=== PATIENT | female | born 1990 | race Caucasian/White ===

== ENCOUNTER 2018-11-24 13:31 | Emergency (ER) | payer OTHER ==
[~2018-11-24] VITALS: Ht 157.5 cm; Wt 76.2 kg
[2018-11-24 13:35] VITALS: Ht 157.5 cm; Wt 76.2 kg
[2018-11-24] MEDS ORDERED: ACETAMINOPHEN 325 MG TAB PO STA (14:47)
--- NOTE | 2018-11-24 15:03 | ERD ---
ER Documentation Chief Complaint Chief Complaint LLQ PAIN SINCE LAST NIGHT - LMP 09/08/18 HPI 28-year-old female in her 11th week of presents with complaint of left quadrant abdominal pain. States that the pain started last night. States that the pain is intermittent. Currently states the pain is 5 out of 10 in intensity. She also states there is been some associated left flank pain. Has not been taking any treatments. Denies any nausea, vomiting, diarrhea, fevers, chills, vaginal discharge, dysuria, hematuria. ROS All systems reviewed and are negative except as per history of present illness. Medications Home Meds Active Scripts Acetaminophen* (Tylophen*) 500 Mg Capsule, 1 CAP PO Q6H PRN for PAIN AND OR ELEVATED TEMP, #20 CAP Prov:AIDE LOUISE 11/24/18 Allergies Allergies: Coded Allergies: No Known Allergy (Unverified , 11/24/18) PMhx/Soc Medical and Surgical Hx: pt denies Medical Hx, pt denies Surgical Hx Hx Alcohol Use: No Hx Substance Use: No Hx Tobacco Use: No Smoking Status: Never smoker FmHx Family History: No diabetes, No coronary disease, No other Physical Exam Vitals Vital Signs Date Temp Pulse Resp B/P (MAP) Pulse Ox O2 O2 Flow FiO2 Time Delivery Rate 11/24/18 98.1 101 18 140/93 98 13:35 (109) Physical Exam Const: No acute distress Head: Atraumatic Eyes: Normal Conjunctiva ENT: Normal External Ears, Nose and Mouth. Neck: Full range of motion. No meningismus. Resp: Clear to auscultation bilaterally Cardio: Regular rate and rhythm, no murmurs Abd: Tenderness to palpation without guarding in lower left quadrant. Otherwise soft, non tender, non distended. Normal bowel sounds. Skin: No petechiae or rashes Back: Mild CVA tenderness on left side. Ext: No cyanosis, or edema Neur: Awake and alert Psych: Normal Mood and Affect Result Diagram: 11/24/18 1450 11/24/18 1450 Results 24 hrs Laboratory Tests Test 11/24/18 14:41 11/24/18 14:43 11/24/18 14:50 Bedside Urine pH (LAB) 7.0 Bedside Urine Protein (LAB) Negative Bedside Urine Glucose (UA) Negative Bedside Urine Ketones (LAB) Negative Bedside Urine Blood Negative Bedside Urine Nitrite (LAB) Negative Bedside Urine Negative Leukocyte Esterase (L Urine Color YELLOW Urine Clarity CLEAR Urine pH 7.0 Urine Specific Hardaway 1.012 Urine Ketones NEGATIVE mg/dL Urine Nitrite NEGATIVE mg/dL Urine Bilirubin NEGATIVE mg/dL Urine Urobilinogen NEGATIVE mg/dL Urine Leukocyte Esterase NEGATIVE Colton/ul Urine Hemoglobin NEGATIVE mg/dL Urine Glucose NEGATIVE mg/dL Urine Total Protein NEGATIVE mg/dl POC Beta HCG, Qualitative POSITIVE White Blood Count 10.5 10^3/ul Red Blood Count 4.70 10^6/ul Hemoglobin 13.2 g/dl Hematocrit 40.0 % Mean Corpuscular Volume 85.1 fl Mean Corpuscular Hemoglobin 28.1 pg Mean Corpuscular 33.0 g/dl Hemoglobin Concent Red Cell Distribution Width 13.2 % Platelet Count 331 10^3/UL Mean Platelet Volume 10.8 fl Immature Granulocytes % 0.300 % Neutrophils % 79.1 % Lymphocytes % 14.0 % Monocytes % 6.1 % Eosinophils % 0.3 % Basophils % 0.2 % Nucleated Red Blood Cells % 0.0 /100WBC Immature Granulocytes # 0.030 10^3/ul Neutrophils # 8.3 10^3/ul Lymphocytes # 1.5 10^3/ul Monocytes # 0.6 10^3/ul Eosinophils # 0.0 10^3/ul Basophils # 0.0 10^3/ul Nucleated Red Blood Cells # 0.0 10^3/ul Sodium Level 137 mmol/L Potassium Level 3.7 mmol/L Chloride Level 102 mmol/L Carbon Dioxide Level 23 mmol/L Anion Gap 12 Blood Urea Nitrogen 6 mg/dl Creatinine 0.41 mg/dl Est Glomerular Filtrat > 60 mL/min Rate mL/min Glucose Level 110 mg/dl Calcium Level 9.7 mg/dl Total Bilirubin 0.2 mg/dl Direct Bilirubin 0.00 mg/dl Indirect Bilirubin 0.2 mg/dl Aspartate Amino 18 IU/L Transf (AST/SGOT) Alanine 17 IU/L Aminotransferase (ALT/SGPT) Alkaline Phosphatase 111 IU/L Total Protein 7.7 g/dl Albumin 4.2 g/dl Globulin 3.50 g/dl Albumin/Globulin Ratio 1.20 Lipase 144 U/L Beta HCG, Quantitative 376921.0 mIU/ml Current Medications Medications Dose Sig/Yehuda Start Time Status Last (Trade) Ordered Route PRN Stop Time Admin Dose Reason Admin 650 mg ONCE STAT 11/24/18 DC 11/24/18 Acetaminophen PO 14:47 14:52 (Tylenol 11/24/18 14:50 Tab) Procedures/MDM DIAGNOSTIC IMAGING REPORT Patient: BORIS LEBLANC : 1990 Age: 28 Sex: F MR #: [id number] DOS: 11/24/18 1447 Ordering MD: AIDE LOUISE Location: [facility] Room/Bed: PROCEDURE: US OB. CLINICAL INDICATION: Left lower quadrant pain TECHNIQUE: Transabdominal and transvaginal views of the pelvis are available for review. COMPARISON: No prior studies are available for comparison. FINDINGS: There is a single intrauterine gestation with the crown-rump length measuring 2.8 cm and the gestational sac measures 5.1 cm, corresponding to a gestational age of 10 weeks and 4 days. The heart rate is noted at 165 bpm. There is a small 1 cm hypoechoic fluid collection adjacent to the gestational sac. The ovaries are normal in size and echogenicity. Normal Doppler flow is identified in both ovaries. The right ovary measures 2.4 x 2.0 x 2.5 cm. The left ovary measures 4.4 x 2.1 x 2.5 cm. There is no free fluid. RPTAT: AA IMPRESSION: Single live intrauterine with an estimated gestational age of 10 weeks and 4 days, based on ultrasound measurements. DANY based on ultrasound measurements is 06/18/19. Small area of subchorionic hemorrhage. .Gumaro Noyola MD, MD Date Time Electronically viewed and signed by .Gumaro Noyola MD, on 11/24/2018 15:13 .S/ CC: AIDE LOUISE [id number] MDM: Ultrasound was performed and results within normal limits. There is no sign of UTI blood work was within normal limits as well. The suspicion for pyelonephritis, ectopic , ovarian torsion, diverticulitis, diverticulosis, bowel obstruction, acute abdomen, cholecystitis, cholelithiasis, or any other emergent condition. There was small area of subchorionic hemorrhage shown on the ultrasound the patient was advised to have close follow- up with her OB. Patient understood and agreed. Patient discharged with strict ER precautions. Patient advised to follow up with PMD. All questions answered at discharge. Departure Diagnosis: Primary Impression: Abdominal pain Abdominal location: left lower quadrant Qualified Codes: R10.32 - Left lower quadrant pain Condition: Stable AIDE LOUISE Nov 24, 2018 15:03
[2018-11-24] MEDS ORDERED: ACET500C5 PO (17:13)
[2018-11-24 17:25] VITALS: BP 122/67; PULSE 78; RESP 18
== END 2018-11-24 17:25 | disposition home or self-care (01) ==
LOC: FTE 13:31
DX: O26.891 Other specified pregnancy related conditions, first trimester (principal); R10.32 Left lower quadrant pain; Z3A.10 10 weeks gestation of pregnancy
CPT/HCPCS: 36415; 76801; 80053; 81003; 81025; 83690; 84702; 85025; 86900; 86901; 87086; Z7502; Z7610

== ENCOUNTER 2018-12-25 13:59 | Emergency (ER) | payer OTHER ==
[~2018-12-25] VITALS: Wt 75.4 kg
[~2018-12-25 13:59] MED LIST: ACET500C5 PO
[2018-12-25 14:03] VITALS: BP 127/80; PULSE 90; RESP 18
[2018-12-25] MEDS ORDERED: ACET500C5 PO (15:33)
--- NOTE | 2018-12-25 15:56 | ERD ---
ER Documentation Chief Complaint Chief Complaint RIGHT KNEE AND MILD ABD PAIN FROM A FALL. NO VAG BLEEDING. NO LOC HPI 28-year-old female presenting with right knee pain and abdominal pain after a fall earlier today. Patient is about 14 weeks she is concerned about the baby. She is had no vaginal bleeding and no pelvic cramping. G5, . Denies medical problems. NKDA. Surgical history denies. Social history denies ROS All systems reviewed and are negative except as per history of present illness. Medications Home Meds Active Scripts Acetaminophen* (Tylophen*) 500 Mg Capsule, 2 CAP PO Q8H PRN for PAIN AND OR ELEVATED TEMP, #20 CAP Prov:MAKI WASHBURN PA-C 12/25/18 Acetaminophen* (Tylophen*) 500 Mg Capsule, 1 CAP PO Q6H PRN for PAIN AND OR ELEVATED TEMP, #20 CAP Prov:AIDE LOUISE 11/24/18 Allergies Allergies: Coded Allergies: No Known Allergy (Unverified , 11/24/18) PMhx/Soc Hx Alcohol Use: No Hx Substance Use: No Hx Tobacco Use: No FmHx Family History: No diabetes, No coronary disease, No other Physical Exam Vitals Vital Signs Date Temp Pulse Resp B/P (MAP) Pulse Ox O2 O2 Flow FiO2 Time Delivery Rate 12/25/18 99.3 90 18 127/80 99 14:03 (96) Physical Exam GENERAL: The patient is well-appearing, well-nourished, in no acute distress CHEST: Clear to auscultation bilaterally. There are no rales, wheezes or rhonchi. HEART: Regular rate and rhythm. No murmurs, clicks, rubs or gallops. ABDOMEN:Soft, nontender and nondistended. Good bowel sounds. No rebound or guarding. No gross peritonitis. No gross organomegaly or masses. No Frausto sign or McBurney point tenderness. EXTREMITIES: Equal pulses bilaterally. There is no peripheral clubbing, cyanosis or edema. No focal swelling or erythema. Full range of motion. Grossly neurovascularly intact. NEUROLOGIC: Alert and oriented. Cranial nerves II through XII intact. Motor strength in all 4 extremities with 5 out of 5 strength. Sensation grossly intact. Normal speech and gait. SKIN: Abrasions noted to right knee. Procedures/MDM DIAGNOSTIC IMAGING REPORT Patient: BORIS LEBLACN : 1990 Age: 28 Sex: F MR #: [id number] DOS: 12/25/18 1452 Ordering MD: JACK WASHBURN PA-C Location: [facility] Room/Bed: PROCEDURE: US OB. CLINICAL INDICATION: Pelvic pain, status post fall TECHNIQUE: Transabdominal views of the pelvis are available for review. COMPARISON: 11/24/2018 FINDINGS: There is a single intrauterine gestation with the crown-rump length measuring 8.4 cm, corresponding to a gestational age of 14 weeks and 2 days. The heart rate is noted at 144 bpm. The placenta is anterior. There is no evidence of placental abruption . MVP measures 3.8 cm. The ovaries are normal in size and echogenicity. Normal Doppler flow is identified in both ovaries. The right ovary measures 1.8 x 1.0 x 1.1 cm. The left ovary measures 2.0 x 1.9 x 2.0 cm. There is no free fluid. RPTAT: AA IMPRESSION: Single live intrauterine with an estimated gestational age of 14 weeks and 2 days, based on ultrasound measurements. DANY based on ultrasound measurements is 06/23/19. MDM: 28-year-old female presenting with knee pain. I have low suspicion for abdominal emergency or complication of secondary to fall. I have low suspicion for acute fracture dislocation. Patient is discharged with strict ER precautions and told to follow-up with primary care within 1 to 2 days for close evaluation. Patient is told if symptoms change or worsen to return immediately to the ER. She was told to take Tylenol and clean with soap and water. All q uestions answered at discharge Departure Diagnosis: Primary Impression: Contusion Additional Impression: Fall Condition: Stable Patient Instructions: Contusion, Soft Tissue, Fall, Mechanical Referrals: COMM[facility] YOU HAVE RECEIVED A MEDICAL SCREENING EXAM AND THE RESULTS INDICATE THAT YOU DO NOT HAVE A CONDITION THAT REQUIRES URGENT TREATMENT IN THE EMERGENCY DEPARTMENT. FURTHER EVALUATION AND TREATMENT OF YOUR CONDITION CAN WAIT UNTIL YOU ARE SEEN IN YOUR DOCTORS OFFICE WITHIN THE NEXT 1-2 DAYS. IT IS YOUR RESPONSIBILITY TO MAKE AN APPOINTMENT FOR FOLOW-UP CARE. IF YOU HAVE A PRIMARY DOCTOR --you should call your primary doctor and schedule an appointment IF YOU DO NOT HAVE A PRIMARY DOCTOR YOU CAN CALL OUR PHYSICIAN REFERRAL HOTLINE AT IF YOU CAN NOT AFFORD TO SEE A PHYSICIAN YOU CAN CHOSE FROM THE FOLLOWING [facility] [address] [facility] [address] [facility] [address] [facility] [address] [facility] [phone] [id number] [facility]. [facility]. [address] Additional Instructions: FOLLOW UP WITH YOUR PRIMARY CARE PHYSICIAN TOMORROW.Return to this facility if you are not improving as expected. MAKI WASHBURN PA-C December 25, 2018 15:56
== END 2018-12-25 15:41 | disposition home or self-care (01) ==
LOC: FTE 13:59
DX: O9A.212 Injury, poisoning and certain other consequences of external causes complicating pregnancy, second trimester (principal); S80.01XA Contusion of right knee, initial encounter; W18.39XA Other fall on same level, initial encounter; Y92.9 Unspecified place or not applicable; Z3A.14 14 weeks gestation of pregnancy
CPT/HCPCS: 76801; Z7502

== ENCOUNTER 2019-03-25 18:35 | Outpatient (CLI) | payer OTHER ==
[~2019-03-25] VITALS: Ht 157.5 cm; Wt 80.9 kg
[~2019-03-25 18:35] MED LIST changes: +PNV11TAB PO
[2019-03-25 18:59] VITALS: BP 117/59; PULSE 99; RESP 18; Ht 157.5 cm; Wt 80.9 kg
[2019-03-25] MEDS ORDERED: LACTATED RINGER'S 1,000 ML IV SCH ×2 (19:15→19:30)
[2019-03-25] MEDS ORDERED: TERBUTALINE 1 MG/ML INJ SC ONE (22:00)
--- NOTE | 2019-03-25 22:12 | PN ---
Triage Information Date/Time Reason for visit: Abd/pelvic pain Weeks of Gestation 28-year-old 5 para 3 at 26 weeks and 4 days of gestation with estimated date of delivery June 27, 2019 Patient presents with chief complaint of back pain and pelvic cramping with pain level of 5 out of 10 She also reports of mucousy blood-tinged vaginal discharge Patient reports positive movement, denies leaking fluid /Para 5 para 3 Diabetes: none Hypertention: none Objective Vital Signs Date Temp Pulse Resp B/P (MAP) Pulse Ox O2 O2 Flow FiO2 Time Delivery Rate 03/25/19 98.1 99 18 117/59 18:59 (78) Heart Rate: 140's Heart Rate Comments heart rate tracing category 1 Contractions: < 5 Minutes Apart Results/Medications Result Diagram: 03/25/19 1840 03/25/19 1840 Results 24 hrs Laboratory Tests Test 03/25/19 18:40 03/25/19 18:50 White Blood Count 7.9 # Red Blood Count 3.84 L Hemoglobin 10.3 #L Hematocrit 32.5 L Mean Corpuscular Volume 84.6 Mean Corpuscular Hemoglobin 26.8 L Mean Corpuscular Hemoglobin Concent 31.7 L Red Cell Distribution Width 13.4 Platelet Count 316 Mean Platelet Volume 10.9 H Immature Granulocytes % 0.500 H Neutrophils % 69.3 Lymphocytes % 22.0 Monocytes % 7.1 Eosinophils % 0.8 Basophils % 0.3 Nucleated Red Blood Cells % 0.0 Immature Granulocytes # 0.040 H Neutrophils # 5.5 Lymphocytes # 1.8 Monocytes # 0.6 Eosinophils # 0.1 Basophils # 0.0 Nucleated Red Blood Cells # 0.0 Sodium Level 134 L Potassium Level 3.7 Chloride Level 103 Carbon Dioxide Level 22 Anion Gap 9 Blood Urea Nitrogen 4 L Creatinine 0.36 L Est Glomerular Filtrat Rate mL/min > 60 Glucose Level 124 Calcium Level 9.4 Total Bilirubin 0.3 Direct Bilirubin 0.00 Indirect Bilirubin 0.3 Aspartate Amino Transf (AST/SGOT) 21 Alanine Aminotransferase (ALT/SGPT) 15 Alkaline Phosphatase 128 H Total Protein 6.9 Albumin 3.3 Globulin 3.60 H Albumin/Globulin Ratio 0.91 Urine Color STRAW Urine Clarity CLEAR Urine pH 6.0 Urine Specific Bryan 1.005 Urine Ketones NEGATIVE Urine Nitrite NEGATIVE Urine Bilirubin NEGATIVE Urine Urobilinogen NEGATIVE Urine Leukocyte Esterase NEGATIVE Urine Hemoglobin NEGATIVE Urine Glucose NEGATIVE Urine Total Protein NEGATIVE Medications Current Medications Lactated Ringer's 1,000 ml @ 125 mls/hr Q8H IV Last administered on 03/25/19at 19:43; Admin Dose 125 MLS/HR; Start 03/25/19 at 19:15 Imaging Results PROCEDURE: US OB. CLINICAL INDICATION: Size and dates TECHNIQUE: Multiple sonographic images of the pelvis and gravid uterus were obtained. The images were reviewed on a PACS workstation. COMPARISON: No prior studies are available for comparison. FINDINGS: There is a single live intrauterine gestation. Cardiac activity is present with 158 beats per minute. There is a vertex presentation. The placenta is anterior right. There is no evidence of placental abruption. TOMER = 14.9 cm. Measurements: BPD = 6.5 cm, 26 weeks and 3 days HC = 25.3 cm, 27 weeks and 3 days AC = 24.6 cm, 28 weeks and 6 days FL = 5.5 cm, 28 weeks and 6 days Gestational Age: AUA estimated gestational age: 27 weeks 6 days LMP estimated gestational age: 26 weeks 4 days AUA estimated date of delivery: 06/18/19 The EFW = 1245 g, >97%ile based on LMP age. RPTAT: AA IMPRESSION: Single live intrauterine gestation of 27 weeks 6 days by ultrasound criteria. .Gumaro Noyola MD, Date Time Electronically viewed and signed by .Gumaro Noyola MD, on 03/25/2019 20: 12 .S/ CC: BERTRAND CASEY MD [id number] PROCEDURE: US OB biophysical profile. Ultrasound cervix CLINICAL INDICATION: decreased movements, labor TECHNIQUE: Multiple sonographic images of the pelvis were obtained. In addition, transvaginal images of the cervix were obtained. The images were reviewed on a PACS workstation. COMPARISON: No prior studies are available for comparison. FINDINGS: The cervix measures 5.3 cm in length. There is a single live intrauterine gestation. Cardiac activity is present with 173 beats per minute. There is a vertex presentation. The placenta is anterior right. There is no evidence of placental abruption. TOMER = 14.9 cm. Biophysical profile: movement 2/2 tone 2/2. breathing 2/2 TOMER 2/2 Total 03/17 RPTAT: AA . IMPRESSION: Normal biophysical profile. Cervix measures 5.3 cm in length. .Gumaro Noyola MD, MD Date Time Electronically viewed and signed by .Gumaro Noyola MD, MD on 03/25/2019 20:11 .S/ CC: BERTRAND CASEY MD [id number] Disposition: Discharge Assessment/Plan Patient received IV fluid hydration Patient received terbutaline subcu kick count instructions were given Labor precautions were given Patient instructed to follow-up with [facility] in 1 to 2 days MARYA FAN MD Mar 25, 2019 22:12
--- NOTE | 2019-03-26 02:18 | TRIAGE ---
OB Triage Datetime Report Generated by CPN: 03/26/2019 02:18 Datetime: 03/25/2019 19:03 Stage of : OB Triage Datetime: 03/25/2019 18:45 Stage of : OB Triage Assessment Type: Triage Maternal Assessment Level of Consciousness: Keenly Alert, Responsive DTR's/Clonus: DTRs 2+; No Clonus Headache: Denies Blurred Vision: No Respiratory Effort: Unlabored; Regular Rhythm; Equal Expansion Breath Sounds, Left: Clear and Equal Breath Sounds, Right: Clear and Equal Nausea/Vomiting: Denies RUQ Epigastric Pain: Denies Facial Edema: None Temperature Route: Axillary Fall Risk Assessment History of Falling: (0) No Secondary Diagnosis: (0) No Ambulatory Aid: (0) Bedrest/Nurse Assist IV Therapy: (0) No Gait: (0) Normal/Bedrest/Immobile Mental Status: (0) Oriented to Own Ability Fall Score: 0 Fall Risk Score Definition: No Risk: No action required Labor Evaluation Monitor Mode: External Heart Rate FHR Baseline Rate: 125 Monitor Mode: External US Variability: Moderate 6-25 bpm Accelerations: 10X10 Decelerations: None Pain Assessment Pain Scale: 5 Pain Presence: Intermittent Pain Type: Cramping Pain Location: Perineum Pain Goal: 3 Pain Relief Measures: Comfort Measures Datetime: 03/25/2019 18:43 Time of Arrival: 03/25/2019 18:22 EGA: 26.4 Arrived By: Ambulatory Arrived From: Home Chief Complaint: C/O BACK PAIN/ VAGINAL PRESSURE X 1 WEEK, DENIES LEAKING OR BLEEDING Movement: Present Contractions: Denies/Absent Rupture of Membranes: Denies Vaginal Bleeding: None Vaginal Discharge: Denies Recent Sexual Intercouse: Denies Abdominal Trauma: Not Applicable Time Provider Notified: 03/25/2019 19:03 Provider Notified: Adamaris Initial Plan: MONITOR,
== END 2019-03-26 00:17 | disposition home or self-care (01) ==
LOC: OBT 18:35 → L-D 18:37 → OBT 03-26 00:17
PROVIDERS: ATTEND Obstetrics & Gynecology
DX: O62.9 Abnormality of forces of labor, unspecified (principal); Z3A.26 26 weeks gestation of pregnancy
CPT/HCPCS: 36415; 76815; 76817; 76818; 80053; 81003; 85025; 87086; 96360; 96361; 96372; J3105; J7120; Z7500; G0463